=== PATIENT | male | born 1950 | race Two or more races ===

== ENCOUNTER 2022-07-23 20:51 | Inpatient (IN) | payer MEDICARE, OTHER ==
[~2022-07-23] VITALS: Ht 170.2 cm; Wt 89.0 kg
[2022-07-23 22:30] LABS: Basophils # (auto) 0.3 10 ^3/uL (0-0.2); Basophils % (auto) 2.9 % (0.0-2.0); Eosinophils # (auto) 0.1 10 ^3/uL (0-0.8); Eosinophils % (auto) 1.2 % (0.0-7.0); Hematocrit 46.5 % (41.0-53.0); Hemoglobin 14.9 g/dL (13.5-17.5); Lymphocytes # (auto) 1.8 10 ^3/uL (0.4-5.4); Lymphocytes % (auto) 19.1 % (10.0-50.0); Mean Corpuscular Hemoglobin 28.7 pg (28.0-32.0); Mean Corpuscular Volume 89.7 fL (80.0-100.0); Monocytes # (auto) 0.6 10 ^3/uL (0-1.3); Monocytes % (auto) 6.5 % (0.0-12.0); Neutrophils # (auto) 6.7 10 ^3/uL (1.6-8.6); Neutrophils % (auto) 70.3 % (37.0-80.0); Nucleated Red Blood Cells % 0.1 %; Red Blood Cells 5.18 10^6/uL (4.5-5.90); Red Cell Distribution Width 14.5 % (11.8-14.3); White Blood Cell 9.5 10^3/uL (4.4-10.8)
[2022-07-23 22:43] LABS: Albumin 3.5 g/dL (3.4-5.0); Calcium 9.5 mg/dL (8.5-10.1)
[2022-07-23 22:46] LABS: BUN/Creatinine Ratio 17.3; Bilirubin, Total 0.4 mg/dL (0.2-1.0); Total Protein 7.5 g/dL (6.4-8.2)
[2022-07-24] MEDS ORDERED: DEXTROSE (50%) 50ML SYRG IV PRN (09:00)
[2022-07-24] MEDS ORDERED: MORPHINE SULFATE INJ 2 MG/ml SYRG IV PRN (09:00)
[2022-07-24] MEDS ORDERED: SODIUM CHLORIDE 0.9% 1,000 ML IV SCH (09:00)
[2022-07-24] MEDS ORDERED: ACETAMINOPHEN 325 MG TAB PO PRN (09:00)
[2022-07-24] MEDS ORDERED: NITROGLYCERIN 0.4 MG SL TAB SL PRN (09:00)
[2022-07-24] MEDS ORDERED: PANTOPRAZOLE 40 MG/10 ML VIAL INJ IV ONE (09:00)
[2022-07-24 10:14] LABS: Cholesterol 101 mg/dL (< 200); HDL Cholesterol 39 mg/dL (40-59); LDL Cholesterol 52 mg/dL (< 100); Triglycerides 90 mg/dL (< 150)
[2022-07-25] VITALS (7 sets, daily range): BP systolic 113–149; BP diastolic 65–88
[2022-07-25] MEDS ORDERED: ATOR20TA PO (02:45)
[2022-07-25] MEDS ORDERED: METF-370 PO (02:45)
[2022-07-25] MEDS ORDERED: GLIP5TAB12 PO (02:45)
[2022-07-25] MEDS: ACCU-CHEK COMFORT CURVE STRIP VI SCH ×4 (06:15→22:35)
[2022-07-25] MEDS: InsuLIN REG 1unit/0.01ml Soln (100units/ml) SC SCH ×4 (06:16→22:38)
[2022-07-25 08:42] LABS: Urine Blood Negative /uL (Negative); Urine Specific Gravity 1.025 (1.001-1.035)
[2022-07-25] MEDS: PANTOPRAZOLE 40 MG/10 ML VIAL INJ IV SCH (09:20)
[2022-07-25] MEDS: ZINC SULFATE 220mg CAP or TAB PO SCH (09:20)
[2022-07-25] MEDS: MULTIPLE VITAMIN TAB PO SCH (09:20)
[2022-07-25] MEDS: ENOXAPARIN SOD 40 MG/0.4 ML SYRINGE SC SCH (09:20)
[2022-07-25] MEDS: ASCORBIC ACID 500 MG TAB PO SCH ×3 (09:20→22:29)
[2022-07-25 10:20] LABS: Basophils # (auto) 0 10 ^3/uL (0-0.2); Basophils % (auto) 0.2 % (0.0-2.0); Eosinophils # (auto) 0.1 10 ^3/uL (0-0.8); Eosinophils % (auto) 1.4 % (0.0-7.0); Hematocrit 39.6 % (41.0-53.0); Hemoglobin 13.2 g/dL (13.5-17.5); Lymphocytes # (auto) 1.2 10 ^3/uL (0.4-5.4); Lymphocytes % (auto) 16.3 % (10.0-50.0); Mean Corpuscular Hemoglobin 29.6 pg (28.0-32.0); Mean Corpuscular Hgb Conc. 33.4 g/dL (32.0-36.0); Mean Corpuscular Volume 88.5 fL (80.0-100.0); Monocytes # (auto) 0.5 10 ^3/uL (0-1.3); Monocytes % (auto) 7.2 % (0.0-12.0); Neutrophils # (auto) 5.5 10 ^3/uL (1.6-8.6); Neutrophils % (auto) 74.9 % (37.0-80.0); Nucleated Red Blood Cells % 0.1 %; Red Blood Cells 4.48 10^6/uL (4.5-5.90); Red Cell Distribution Width 14.5 % (11.8-14.3); White Blood Cell 7.3 10^3/uL (4.4-10.8)
[2022-07-25 10:39] LABS: BUN/Creatinine Ratio 24.3; Bilirubin, Total 0.8 mg/dL (0.2-1.0); Total Protein 6.7 g/dL (6.4-8.2)
[2022-07-25] MEDS ORDERED: ATORVASTATIN 20 MG TAB PO SCH (22:00)
[2022-07-25] MEDS ORDERED: LORazepam 2MG/ML-1ML VIAL IV PRN (22:00)
[2022-07-26 05:00] VITALS: BP_SYST 104; BP_SYST 108; BP_SYST 111; BP_DIAS 74; BP_DIAS 75
[2022-07-26 06:16] LABS: BUN/Creatinine Ratio 25.5; Calcium 9.3 mg/dL (8.5-10.1); Magnesium 1.6 mg/dL (1.6-2.6); Potassium 3.7 mmol/L (3.5-5.1)
[2022-07-26] MEDS: ACCU-CHEK COMFORT CURVE STRIP VI SCH ×2 (06:22→11:56)
[2022-07-26] MEDS: InsuLIN REG 1unit/0.01ml Soln (100units/ml) SC SCH ×2 (06:25→11:58)
[2022-07-26] MEDS ORDERED: MECL25TA18 PO (08:53)
[2022-07-26] MEDS ORDERED: METF-370 PO (08:53)
[2022-07-26] MEDS ORDERED: GLIP5TAB12 PO (08:53)
[2022-07-26] MEDS ORDERED: EMPA1TAB PO (08:53)
[2022-07-26] MEDS ORDERED: ERGO1CAP23 PO (08:53)
[2022-07-26] MEDS ORDERED: ATOR20TA PO (08:53)
[2022-07-26 09:00] VITALS: BP_SYST 118; BP_SYST 121; BP_SYST 127; BP_DIAS 71; BP_DIAS 79; BP_DIAS 80
[2022-07-26] MEDS ORDERED: MECLIZINE HCL 25 MG TAB PO ONE (09:00)
[2022-07-26] MEDS ORDERED: ERGOCALCIFEROL 50,000 UNIT(1.25MG) CAP PO SCH (10:00)
[2022-07-26] MEDS ORDERED: MAGNESIUM OXIDE 400 MG TAB PO SCH (10:00)
[2022-07-26] MEDS: PANTOPRAZOLE 40 MG/10 ML VIAL INJ IV SCH (10:28)
[2022-07-26] MEDS: ASCORBIC ACID 500 MG TAB PO SCH (10:29)
[2022-07-26] MEDS: MULTIPLE VITAMIN TAB PO SCH (10:29)
[2022-07-26] MEDS: ZINC SULFATE 220mg CAP or TAB PO SCH (10:29)
[2022-07-26] MEDS: ENOXAPARIN SOD 40 MG/0.4 ML SYRINGE SC SCH (10:30)
[2022-07-26 12:09] LABS: Protein, Urine 8.9 mg/dL (0.0-11.9)
[2022-07-26 12:47] LABS: Folate (Folic Acid) 15.16 ng/mL (5.38-24)
== END 2022-07-26 15:02 | disposition home or self-care (01) | DRG 312 ==
LOC: ER 21:01 → EDBD 21:01 → TELE 07-24 08:53 → TELE-CENTR 07-25 01:50
PROVIDERS: ADMIT Nurse Practitioner Family; ATTEND Internal Medicine
DX: R55 Syncope and collapse (principal); H81.10 Benign paroxysmal vertigo, unspecified ear; E11.65 Type 2 diabetes mellitus with hyperglycemia; E55.9 Vitamin D deficiency, unspecified; E66.01 Morbid (severe) obesity due to excess calories; E78.5 Hyperlipidemia, unspecified; Z71.3 Dietary counseling and surveillance; Z68.30 Body mass index [BMI] 30.0-30.9, adult; Z20.822 Contact with and (suspected) exposure to COVID-19
CPT/HCPCS: 36415; 70450; 70551; 71045; 80048; 80053; 80061; 81003; 82043; 82306; 82570; 82607; 82746; 82962; 83036; 83735; 84156; 84443; 84484; 85025; 87426; 93005; 93306; 93886; C9113; G0378; J1815